=== PATIENT | male | born 2005 | race Caucasian/White ===

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

== ENCOUNTER 2023-02-15 10:51 | Emergency (ER) | payer MEDICAID, SELFPAY ==
[2023-02-15 10:53] VITALS: BP 137/69; PULSE 66; RESP 14; TEMP 37.3; O2SAT 99
--- NOTE | 2023-02-15 11:36 | ED.GENADUL_ITS ---
Discharge Plan Disposition Patient Disposition: Home Discharge Details Clinical Impression: Back injury Primary Care Provider: Karen Sifuentes V ED Provider: Yina Lee Home Meds and New Rx's Prescriptions: New cyclobenzaprine 10 mg tablet 10 mg PO TID PRNQty: 10 0RF Continued albuterol sulfate [ProAir HFA] 90 mcg/actuation HFA aerosol inhaler 2 puff Inhalation QID Qty: 1 0RF Discharge Instructions Instructions: Core Strengthening Exercises (ED) Additional Instructions: Please take ibuprofen 600 mg every 8 hours with food for the next 3 to 5 days as needed for pain You may take 10 mg Flexeril, this will make you drowsy and you should not drive for 8 hours after taking this medication Please return earlier should you have changes in bowel or bladder, strength or sensation change to your extremities, fever or chills, or with any new or worsening complaints Recommendation to limit lifting to under 10 pounds until you are symptomatically improved I am giving you a referral to physical therapy as well Stand Alone Forms: Physical Therapy Referral Referrals: Karen Sifuentes MD [Primary Care Provider] - Discharge Data Discharge Date/Time-TO BE ENTERED AT DEPARTURE: 02/15/23 11:58 Medical Decision Making 88-year-old male presents with back pain, recurrent episodes of back pain, does endorse heavy manual labor No significant midline tenderness or evidence of cauda equina syndrome Certainly, herniated disc, no indication for emergent MRI clinically, neurologically intact Encouraged physical therapy follow-up Flexeril, ibuprofen 10 pound weight left limit Return precautions reviewed and patient expressed understanding Medical Records Medical records reviewed: Yes I reviewed the patient's medical records. HPI General Date/Time Provider Initiated Documentation: 02/15/23 11:03 . HPI Narrative: This otherwise healthy 17-year-old male who presents with back pain. States he was helping his friend cut down a tree and was moving branches later that evening pain in his back. Denies any radiation. States he had pain similar to this in the past denies changes in bowel or bladder, abdominal pain, strength or sensation changes to groin or rectal region. Denies any weakness to extremities the pain is worse in movement. Take Tylenol for pain, has not tried Motrin Related Data Home Medications Medication Instructions Recorded Confirmed albuterol sulfate 90 mcg/actuation 2 puff inhalation QID ##1 07/31/21 02/15/23 aerosol inhaler (ProAir HFA) cyclobenzaprine 10 mg tablet 10 mg PO TID PRN #10 tabs 02/15/23 Previous Rx's Medication Instructions Recorded albuterol sulfate 90 mcg/actuation 2 puff inhalation QID ##1 07/31/21 aerosol inhaler (ProAir HFA) cyclobenzaprine 10 mg tablet 10 mg PO TID PRN #10 tabs 02/15/23 Allergies Allergy/AdvReac Type Severity Reaction Status Date / Time No Known Allergies Allergy Verified 02/15/23 11:11 General Stated Complaint: Nk/Back Pain KAMRYN: 4 PFSH All Active Problems (Updated 02/15/23 @ 11:46 by ANYA [email or web address]) Back injury (Acute) Social History Smoking/Tobacco Use Status: Current-Occasional Tobacco Type: cigarettes and e- cigarettes Smoking risk assessment performed?: Yes Alcohol Intake: never Drug use: Rarely Substance use type: marijuana Do you feel safe at home: Yes Do you feel safe in your relationship?: Yes Exam GI Other: No abdominal tenderness or Back/Spine/Pelvis Back: no CVA tenderness Thoracic/Lumbar Spine: thoracic and lumbar spine normal to inspection Other: Midline and paraspinal paraspinal tenderness lumbar and thoracic spine region, no CVA tenderness, negative Babinski, DTRs intact bilateral lower extremities, strength and sensation intact bilateral lower EXTR, neurovascularly intact patient, ambulatory with steady gait Skin General skin exam: no rashes or lesions noted Course Vital Signs Vital signs: Vital Signs Temperature 37.3 C 02/15/23 10:53 Pulse 66 02/15/23 10:53 Respiratory Rate 14 02/15/23 10:53 Blood Pressure 137/69 02/15/23 10:53 Pulse Oximetry 99 02/15/23 10:53 Temperature 37.3 C 02/15/23 10:53 Temperature Source Skin 02/15/23 10:53 Pulse 66 02/15/23 10:53 Respiratory Rate 14 02/15/23 10:53 Respiratory Effort Normal 02/15/23 11:11 Blood Pressure 137/69 02/15/23 10:53 Blood Pressure Position Sitting 02/15/23 10:53 Pulse Oximetry 99 02/15/23 10:53 Oxygen Delivery Method Room Air 02/15/23 10:53 Oxygen Flow Rate 0 02/15/23 10:53 Pain Level 5 02/15/23 10:53 Comment tylenol back pain relief last night 02/15/23 10:53
== END 2023-02-15 11:58 | disposition home or self-care (01) ==
PROVIDERS: Emergency Provider Physician Assistant; PCP Family Medicine
DX: S39.92XA Unspecified injury of lower back, initial encounter (principal); X50.9XXA Other and unspecified overexertion or strenuous movements or postures, initial encounter
CPT/HCPCS: 99283

== ENCOUNTER 2024-08-28 11:33 | Emergency (ER) | payer MEDICAID, SELFPAY ==
[2024-08-28 11:35] VITALS: BP 132/72; PULSE 75; RESP 16; TEMP 36.6; O2SAT 97
--- NOTE | 2024-08-28 12:00 | ED.GENADUL_ITS ---
Discharge Plan Disposition Patient Disposition: Home Condition: Stable Discharge Details Clinical Impression: Bright red rectal bleeding Primary Care Provider: Karen Sifuentes V ED Provider: Samara Fishman Home Meds and New Rx's Prescriptions: No Action albuterol sulfate [ProAir HFA] 90 mcg/actuation HFA aerosol inhaler 2 puff Inhalation QID Qty: 1 0RF Discharge Instructions Instructions: Bloody Stools, Adult ED Additional Instructions: No evidence of hemorrhoids or severe bleeding at this time. If this occurs again please follow-up with your primary care provider for further testing they do have colon cancer testing that can be done. Please obtain stool sample and bring it into the lab for further study. If you are unable to bring them right away please keep it refrigerated are on ice. Follow up with primary care provider in 3-5 days. Return to ED sooner if any worsening bleeding, abdominal pain, fever chills vomiting or concerns. Stand Alone Forms: Work Release Referrals: Karen Sifuentes MD [Primary Care Provider] - 5 days Discharge Data Discharge Date/Time-TO BE ENTERED AT DEPARTURE: 08/28/24 13:23 HPI General Mode of arrival: ambulatory . Date/Time Provider Initiated Documentation: 08/28/24 11:43 . Limitations to Documentation: no limitations . Information obtained by: patient, RN notes reviewed and old records reviewed . HPI Narrative: 19-year-old male presents to the ER with a chief complaint of multiple episodes of bright red blood per rectum. He reports mild achiness to his abdomen, no nausea vomiting. He reports that his last 2 bowel movements prior to arrival did not have any blood and were normal formed brown stool. No other associated symptoms or concerns denies any problems urinating denies any Tylenol ibuprofen or alcohol. He did drink alcohol approximately week ago but denies daily use. Related Data Home Medications ?Medication ?Instructions ?Recorded ?Confirmed albuterol sulfate 90 mcg/actuation 2 puff inhalation QID ##1 07/31/21 08/28/24 aerosol inhaler (ProAir HFA) Previous Rx's ?Medication ?Instructions ?Recorded albuterol sulfate 90 mcg/actuation 2 puff inhalation QID ##1 07/31/21 aerosol inhaler (ProAir HFA) Allergies Allergy/AdvReac Type Severity Reaction Status Date / Time No Known Allergies Allergy Verified 08/28/24 11:34 General Stated Complaint: [facility] KAMRYN: 4 Review of Systems All systems reviewed & are unremarkable except as noted in HPI and below Gastrointestinal Gastrointestinal: Reports as per HPI and Reports hematochezia Exam Const General: cooperative, healthy appearing, well developed and well groomed Nutritional Appearance: average body habitus Orientation: alert, awake and oriented x3 Limitations: altered mental status Resp Effort & Inspection: normal respiratory effort Auscultation: clear to auscultation bilaterally Cardio Rate: regular rate Rhythm: regular rhythm Heart Sounds: S1 normal and S2 normal GI Inspection: normal to inspection Palpation: soft and no hepatosplenomegaly Percussion: normal to percussion Auscultation: normal bowel sounds Rectal Exam: visual inspection normal, normal sphincter tone, prostate normal and heme negative stool Course Vital Signs Vital signs: Vital Signs Temperature 36.6 C 08/28/24 11:35 Pulse 75 08/28/24 11:35 Respiratory Rate 16 08/28/24 11:35 Blood Pressure 132/72 08/28/24 11:35 Pulse Oximetry 97 08/28/24 11:35 Temperature 36.6 C 08/28/24 11:35 Temperature Source Oral 08/28/24 11:35 Pulse 75 08/28/24 11:35 Respiratory Rate 16 08/28/24 11:35 Respiratory Effort Normal, Non-Labored 08/28/24 11:45 Respiratory Depth Normal 08/28/24 11:45 Respiratory Pattern Normal 08/28/24 11:45 Blood Pressure 132/72 08/28/24 11:35 Blood Pressure Position Sitting 08/28/24 11:35 Pulse Oximetry 97 08/28/24 11:35 Oxygen Delivery Method Room Air 08/28/24 11:35 Oxygen Flow Rate 0 08/28/24 11:35 Pain Level 2 08/28/24 11:35 Procedures Stool Hemoccult Procedural Steps Taken: stool placed in appropriate test area, developer placed on stool and control areas and controls appropriately positive and negative Hemoccult result: negative Medical Decision Making 19-year-old male presents to the ER with a chief complaint of multiple episodes of bright red blood per rectum. He reports mild achiness to his abdomen, no nausea vomiting. He reports that his last 2 bowel movements prior to arrival did not have any blood and were normal formed brown stool. No other associated symptoms or concerns denies any problems urinating denies any Tylenol ibuprofen or alcohol. He did drink alcohol approximately week ago but denies daily use. Digital rectal exam performed, patient tolerated well, no visualized or palpated hemorrhoids, fissures or abnormality. Guaiac negative. CBC CMP ordered. Will order outpatient stool studies and back to disposition [place] home. CBC and CMP within normal limits. Hemoglobin 15.6 Hcrit 47.7, no leukocytosis. Will order outpatient stool studies and discharge. Patient is stable throughout the remainder of his stay. All of his questions were answered to the best my ability. This text was generated using [employer] system, please disregard any oddities of phrase or misspellings. Lab Data Lab results reviewed: Yes I reviewed the patient's lab results. Labs: Laboratory Tests Range/Units 08/28/24 12:21 WBC (4.4-10.8) 10^3/uL 5.28 RBC (4.36-5.78) 10^6/uL 5.22 Hgb (13.5-17.5) g/dL 15.6 Hct (40.0-50.0) % 47.7 MCV (80-95) fL 91 MCH (27.0-33.0) pg 29.9 MCHC (32.0-36.0) % 32.7 RDW (11.8-14.1) % 11.8 Plt Count (130-400) 10^3/uL 163 MPV (8.0-11.0) fL 11.2 H Immature Gran % % 0.4 Neutrophils % % 55.1 Lymphocytes % % 28.4 Monocytes % % 12.5 Eosinophils % % 2.8 Basophils % % 0.8 Nucleated RBC % (0.0-0.3) % 0.0 Absolute Neutrophils (1.2-6.7) 10^3/uL 2.91 Absolute Lymphocytes (1.2-3.4) 10^3/uL 1.50 Absolute Monocytes (0.1-0.8) 10^3/uL 0.66 Absolute Eosinophils (0.0-0.7) 10^3/uL 0.15 Absolute Basophils (0.0-0.2) 10^3/uL 0.04 Sodium (136-145) mmol/L 143 Potassium (3.5-5.1) mmol/L 4.6 Chloride (98-107) mmol/L 106 Carbon Dioxide (21.0-32.0) mmol/L 30.8 Anion Gap (3-11) mmol/L 6.2 BUN (7-18) mg/dL 16 Creatinine (0.70-1.30) mg/dL 0.9 Est GFR (CKD-EPI 2020) (mL/min/1.73m2) 124.61 Glucose (74-106) mg/dL 100 Calcium (8.5-10.1) mg/dL 9.0 Total Bilirubin (0.2-1.0) mg/dL 0.43 AST (15-37) U/L 24 ALT (16-63) U/L 22 Alkaline Phosphatase (46-116) U/L 58 Total Protein (6.4-8.2) g/dL 7.2 Albumin (3.4-5.0) g/dL 4.3 Quality:[facility] Health Related Social Needs: No Data to Display PFSH All Active Problems (Updated 08/28/24 @ 12:55 by Samara Fishman NP) Bright red rectal bleeding (Acute) Social History Smoking/Tobacco Use Status: Current-Occasional Tobacco Type: cigarettes and e- cigarettes Smoking risk assessment performed?: Yes Alcohol Intake: never Drug use: Rarely Substance use type: marijuana Do you feel safe at home: Yes Do you feel safe in your relationship?: Yes
[2024-08-28 12:30] LABS: Abs Immature Grans 0.02 10^3/uL (0.0-0.06); Absolute Basophil Count 0.04 10^3/uL (0.0-0.2); Absolute Eosinophil Count 0.15 10^3/uL (0.0-0.7); Absolute Monocyte Count 0.66 10^3/uL (0.1-0.8); Absolute Neutrophil Count 2.91 10^3/uL (1.2-6.7); Basophils % 0.8 %; Eosinophils % 2.8 %; HCT 47.7 % (40.0-50.0); HGB 15.6 g/dL (13.5-17.5); Immature Grans % 0.4 %; Lymphocytes % 28.4 %; MCH 29.9 pg (27.0-33.0); MCHC 32.7 % (32.0-36.0); MCV 91 fL (80-95); MPV 11.2 fL (8.0-11.0); Monocytes % 12.5 %; Neutrophils % 55.1 %; Platelet Count 163 10^3/uL (130-400); RBC 5.22 10^6/uL (4.36-5.78); RDW 11.8 % (11.8-14.1); RDW-SD 39.5 fL; WBC 5.28 10^3/uL (4.4-10.8)
[2024-08-28 12:47] LABS: ALT 22 U/L (16-63); AST 24 U/L (15-37); Albumin 4.3 g/dL (3.4-5.0); Alkaline Phosphatase 58 U/L (46-116); Anion Gap 6.2 mmol/L (3-11); BUN 16 mg/dL (7-18); Bilirubin, Total 0.43 mg/dL (0.2-1.0); CO2 30.8 mmol/L (21.0-32.0); CREATININE 0.9 mg/dL (0.70-1.30); Chloride 106 mmol/L (98-107); Estimated GFR 124.61 (mL/min/1.73m2); Glucose 100 mg/dL (74-106); Potassium 4.6 mmol/L (3.5-5.1); Sodium 143 mmol/L (136-145); Total Protein 7.2 g/dL (6.4-8.2)
[2024-08-28 13:00] VITALS: BP 146/72; PULSE 77; RESP 19; O2SAT 97
== END 2024-08-28 13:23 | disposition home or self-care (01) ==
PROVIDERS: Emergency Provider Registered Nurse Emergency; PCP Family Medicine
DX: K62.5 Hemorrhage of anus and rectum (principal); R10.30 Lower abdominal pain, unspecified; F17.200 Nicotine dependence, unspecified, uncomplicated
CPT/HCPCS: 36415; 80053; 99283; 85025

== ENCOUNTER 2024-08-30 17:02 | Outpatient (REF) | payer MEDICAID, SELFPAY ==
[2024-08-31 11:00] LABS: Campylobacter PCR Negative (Negative); Salmonella PCR Negative (Negative); Shiga Toxin PCR Negative (Negative); Shigella/Enteroinvasive Ecoli Negative (Negative)
== END 2024-08-30 17:03 | disposition home or self-care (01) ==
LOC: LBN 17:02
PROVIDERS: PCP Family Medicine; Referring Provider Family Medicine; Visit Provider Registered Nurse Emergency
DX: K62.5 Hemorrhage of anus and rectum (principal)
CPT/HCPCS: 87505; 83630; 87177